=== PATIENT | male | born 1975 | race African-American/Black ===

== ENCOUNTER 2016-10-23 14:37 | Emergency (ER) | payer OTHER ==
[~2016-10-23] VITALS: Ht 177.8 cm; Wt 99.8 kg
--- NOTE | ~2016-10-23 | CR211 ---
[facility] A Service of [facility] & [facility] RADIOLOGY TEXT RESULTS PATIENT: CHEVY DEGROOT LOCATION: CFTX : 75 UNIT #: [id number] AGE: [address]: Perla Treadwell APRN SEX: M ORDER DR: [id number] [facility] [address] [place], [place] [address] [id number] E MR#: [id number] Acc #: [id number] NAME: CHEVY DEGROOT : 1975 SEX: M STUDY DATE/TIME: 10/23/2016 15:02 UNIT: [facility] ROOM: STUDY DESCRIPTION: CR Ribs Uni 2 View W PA Ch Rt Attending Physician: Perla Treadwell A.P.R.N. Ordering Physician: Ed Doctor [id number] [facility] Primary Care Physician: Fredo Olmstead M.D. MEDICAL IMAGING REPORT This report is preliminary unless electronic signature is present EXAM PA chest with right rib detail series (4 images). Date: 10/23/2016 HISTORY Right rib pain today after moving furniture, A couch slipped and hit his side. COMPARISON STUDIES None FINDINGS Clear lungs. Normal heart size. No pleural effusion or pneumothorax. No acute displaced right rib fractures identified. IMPRESSION No acute chest findings. No evidence of an acute displaced right rib fracture. Dictated by... Mikaela Flor M.D. THIS IS AN ELECTRONICALLY VERIFIED REPORT Mikaela Flor M.D. at 10/26/2016 8:52 AM ARSH/antonia TD: 10/24/2016 03:48 JOB #: [id number] MEDICAL IMAGING REPORT Page 1 of 1 COPY
== END 2016-10-23 16:35 | disposition home or self-care (01) ==
LOC: CED 14:37 → CFTX 14:37
DX: S20.211A Contusion of right front wall of thorax, initial encounter (principal); F17.200 Nicotine dependence, unspecified, uncomplicated; X58.XXXA Exposure to other specified factors, initial encounter; Y92.009 Unspecified place in unspecified non-institutional (private) residence as the place of occurrence of the external cause
CPT/HCPCS: 71101; 94010; 99283; J1885